=== PATIENT | male | born 1985 | race Caucasian/White ===

== ENCOUNTER 2017-04-16 22:40 | Emergency (ER) | payer OTHER ==
[~2017-04-16] VITALS: Ht 182.9 cm; Wt 99.8 kg
[2017-04-16 23:20] LABS: HEMATOCRIT 42.1 % (38.0-50.0); MCH 30.4 PG (29.0-34.0); MCHC 34.4 G/DL (30.0-36.0); MCV 88.3 FL (86-99); MEAN PLAT.VOLUME 9.8 uM^3 (9.0-12.4); PLATELET COUNT 234 K/uL (156-360); RBC DIS.WIDTH-SD 39.2 % (39-53); RED BLOOD COUNT 4.77 M/uL (4.00-5.50); WHITE BLOOD COUNT 7.4 K/uL (4.1-10.2)
[2017-04-16 23:31] LABS: CHLORIDE 107 mEq/L (99-109); POTASSIUM 3.7 mEq/L (3.7-5.4); SODIUM 141 mEq/L (136-147)
[2017-04-16 23:33] LABS: GLUCOSE 76 mg/dL (70-99)
[2017-04-16 23:35] LABS: ANION GAP 9 MEQ/L (2-14)
[2017-04-16 23:37] LABS: GFR ESTIMATE (CALCULATED) > 59 mL/min/
[2017-04-16 23:38] LABS: UREA NITROGEN (BUN) 8 mg/dL (9-23)
[2017-04-16 23:41] LABS: TROP-I INTERPRETATION NEGATIVE; TROPONIN-I < 0.01 ng/mL (0.0-0.30)
[2017-04-17 01:38] LABS: TROP-I INTERPRETATION NEGATIVE; TROPONIN-I < 0.01 ng/mL (0.0-0.30)
[2017-04-17 01:51] VITALS: BP 127/80
== END 2017-04-17 01:52 | disposition home or self-care (01) ==
LOC: EME 22:40
PROVIDERS: Emergency Medicine
DX: R07.89 Other chest pain (principal); Z82.49 Family history of ischemic heart disease and other diseases of the circulatory system; F17.200 Nicotine dependence, unspecified, uncomplicated
CPT/HCPCS: 71020; 80048; 83880; 84484; 85027; 93005; 99281; 99284